=== PATIENT | female | born 1960 | race Caucasian/White ===

== ENCOUNTER 2022-03-30 18:39 | Emergency (ER) | payer SELFPAY ==
[~2022-03-30] VITALS: Ht 147.3 cm; Wt 82.1 kg
--- NOTE | 2022-03-30 18:52 | NUR ---
name called in lobby, no answer at this time
--- NOTE | 2022-03-30 19:13 | NUR ---
lwbs at this time
[2022-03-30 20:44] VITALS: BP 153/88
--- NOTE | 2022-03-30 21:51 | NUR ---
Patient taken to bed 3 via wheel chair.
--- NOTE | 2022-03-30 21:53 | NUR ---
Tomas pardo in [facility] - 03/30/22 at 2200 by [facility] PT W/C TO BED 3.
--- NOTE | 2022-03-30 21:55 | NUR ---
61 YO F BIB SELF WITH C/C OF 07/18 LEFT KNEE PAIN S/P FALL 4WKS. PT STATES ANY TYPE OF MOVEMENT AGGRAVATES THE PAIN. PAIN RADS TO LEFT HIP. PT STATES SHE HAS BEEN TAKING ADVIL FOR PAIN WITH TEMPORARY RELIEF. PT REPORTS SHE FEELS SHE IS UNABLE TO WALK. DENIES HX, AND RX AND ALLERGIES Addendum: 03/30/22 at 2157 by [employer] [employer] PT'S KNEE APPEARS SWOLLEN.
[2022-03-30] MEDS ORDERED: NAPR-54 PO (22:12)
[2022-03-30] MEDS: KETOROLAC 30 MG/ML VIAL IM ONE (22:28)
[2022-03-30 22:49] VITALS: BP 153/88
== END 2022-03-30 22:49 | disposition home or self-care (01) ==
LOC: MED 18:39
DX: S83.92XA Sprain of unspecified site of left knee, initial encounter (principal); Z79.899 Other long term (current) drug therapy; Z85.72 Personal history of non-Hodgkin lymphomas; W19.XXXA Unspecified fall, initial encounter; Y93.89 Activity, other specified; Y92.89 Other specified places as the place of occurrence of the external cause; Y99.8 Other external cause status
CPT/HCPCS: 29505; 73562; 96372; 99283; J1885

== ENCOUNTER 2022-04-16 17:10 | Emergency (ER) | payer SELFPAY ==
[~2022-04-16] VITALS: Ht 147.8 cm; Wt 81.4 kg
[~2022-04-16 17:10] MED LIST: NAPR-54 PO
[2022-04-16 17:19] VITALS: BP 124/61
--- NOTE | 2022-04-16 17:32 | NUR ---
PT AMBULATED TO ER BED 11 WITH A STEADY GAIT.
--- NOTE | 2022-04-16 17:38 | NUR ---
61 Y/O FEMALE C/O LEFT KNEE PAIN 07/18 DESCRIBES BURNING AND THROBBING RADIATES TO BACK OF KNEE S/P FALL X 1 MONTH. PT SEEN HERE SAME S/S 2 WEEKS AGO. PT TOOK IBUPROFEN 1 HOUR AGO WITH NO RELIEF. DENIES FEVER/CHILLS. DENIES N/V/D. PMH: CANCER(LYMPHOMA) NKA
--- NOTE | 2022-04-16 17:41 | NUR ---
VENKAT DUVALTO AT PT BEDSIDE FOR FURTHER EVALUATION.
[2022-04-16] MEDS ORDERED: ONDANSETRON 4 MG ODT PO ONE (17:45)
[2022-04-16] MEDS ORDERED: HYDROcodone/APAP 7.5/325 MG 1 TAB PO ONE (17:45)
[2022-04-16] MEDS ORDERED: ACET-8386 PO ×2 (18:06→18:08)
[2022-04-16] MEDS ORDERED: NAPR-54 PO (18:06)
--- NOTE | 2022-04-16 18:23 | NUR ---
Patient discharged with v/s stable. Written and verbal after care instructions given FOR CHRONIC KNEE PAIN and explained. Patient alert, oriented and verbalized understanding of instructions. Ambulatory with steady gait. All questions addressed prior to discharge. ID band removed. Patient advised to follow up with PMD. Rx of KNEE PAIN given. Patient educated on indication of medication including possible reaction and side effects. Opportunity to ask questions provided and answered.
== END 2022-04-16 18:23 | disposition home or self-care (01) ==
LOC: MED 17:10
DX: M25.562 Pain in left knee (principal); G89.29 Other chronic pain; C85.90 Non-Hodgkin lymphoma, unspecified, unspecified site; Z79.891 Long term (current) use of opiate analgesic; Z79.1 Long term (current) use of non-steroidal anti-inflammatories (NSAID)
CPT/HCPCS: 99283; Q0162

== ENCOUNTER 2023-02-06 12:34 | Emergency (ER) | payer MEDICAID, OTHER ==
[~2023-02-06] VITALS: Ht 157.5 cm; Wt 70.3 kg
[~2023-02-06 12:34] MED LIST changes: +ACET-8905 PO
[2023-02-06 12:50] VITALS: BP 161/79
[2023-02-06] MEDS ORDERED: KETOROLAC 30 MG/ML VIAL IVP ONE ×2 (13:05→15:55)
[2023-02-06] MEDS ORDERED: NACL 0.9% 1,000 ML IV SCH (13:05)
[2023-02-06] MEDS ORDERED: ONDANSETRON 4 MG/2 ML VIAL IVP ONE ×2 (13:05→15:55)
--- NOTE | 2023-02-06 13:07 | NUR ---
PT W/C ASSISTED TO BED 6. ACCOMPANIED BY DAUGHTER
--- NOTE | 2023-02-06 13:17 | NUR ---
pt taken to ct via w/c
--- NOTE | 2023-02-06 13:30 | NUR ---
62/F WALKED IN ACCOMPANIED BY DAUGHTER C/O NAUSEA AND VOMITING ACCOMPANIED BY ABD PAIN ONSET LAST NIGHT. DENIES BLOOD IN VOMIT OR STOOL. DENIES DIARRHEA. AFEBRILE AT TRIAGE. PMH: DM2 NKA
[2023-02-06 13:46] LABS: APPEARANCE,URINE CLEAR (CLEAR); BILIRUBIN,URINE NEGATIVE (NEGATIVE); BLOOD, URINE TRACE-I (NEGATIVE); COLOR,URINE YELLOW (YELLOW); LEUKOCYTE ESTERASE ,URINE 1+ (NEGATIVE); NITRITE, URINE NEGATIVE (NEGATIVE); UGLUCOSE NEGATIVE (NEGATIVE)
[2023-02-06 14:07] LABS: RBC,URINE 0-5 /HPF (0-5)
[2023-02-06 14:19] LABS: BASOPHILS # (AUTO) 0.1 K/uL (0.00-0.22); BASOPHILS % (AUTO) 0.4 % (0.0-2.0); EOSINOPHILS # (AUTO) 0.1 K/uL (0-0.4); EOSINOPHILS % (AUTO) 0.7 % (0.0-4.0); HEMATOCRIT 38.8 % (36-48); HEMOGLOBIN 13.1 g/dL (12.0-16.0); LYMPHOCYTES # (AUTO) 0.7 K/uL (2.5-16.5); LYMPHOCYTES % (AUTO) 5.7 % (20.5-51.1); MEAN CORPUSCULAR HEMOGLOBIN 29 pg (27-31); MEAN CORPUSCULAR HGB CONC 34 g/dL (33-37); MONOCYTES # (AUTO) 0.3 K/uL (0.8-1.0); MONOCYTES % (AUTO) 2.6 % (1.7-9.3); NEUTROPHILS # (AUTO) 11.6 K/uL (1.8-7.7); NEUTROPHILS % (AUTO) 90.6 % (42.2-75.2); PLATELET COUNT (AUTO) 252 K/uL (140-450); RED BLOOD CELL COUNT(AUTO) 4.56 MIL/uL (4.20-5.40); RED CELL DISTRIBUTION WIDTH 13.8 % (11.6-13.7); WHITE BLOOD COUNT (AUTO) 12.8 K/uL (4.8-10.8)
--- NOTE | 2023-02-06 14:47 | NUR ---
UNSUCCESSFUL IV INSERTION. DR TAYLOR AWARE.
[2023-02-06 14:49] LABS: ALBUMIN 3.7 g/dL (3.4-5.0); ANION GAP 16.2 (8-16); CARBON DIOXIDE 23.3 mmol/L (21-32); CREATININE 0.7 mg/dL (0.6-1.3); POTASSIUM 3.5 mmol/L (3.5-5.1); TOTAL BILIRUBIN 0.8 mg/dL (0.0-1.0)
[2023-02-06 15:28] VITALS: BP 124/79
--- NOTE | 2023-02-06 15:29 | NUR ---
MD TAYLOR AT BEDSIDE FOR EVALUATION
[2023-02-06] MEDS ORDERED: MECLIZINE 25 MG TAB PO ONE (15:40)
[2023-02-06] MEDS ORDERED: ONDANSETRON 4 MG/2 ML VIAL ONE (15:53)
[2023-02-06] MEDS ORDERED: NACL 0.9% 1,000 ML IV ONE (15:55)
[2023-02-06] MEDS ORDERED: KETOROLAC 30 MG/ML VIAL ONE (15:57)
[2023-02-06] MEDS ORDERED: CIPR500T4 PO (16:52)
[2023-02-06] MEDS ORDERED: ONDA8TAB87 PO (16:53)
[2023-02-06] MEDS ORDERED: MECL-303 PO (16:53)
[2023-02-06] MEDS ORDERED: IBUP-2213 PO (16:53)
--- NOTE | 2023-02-06 17:00 | NUR ---
Patient discharged with v/s stable. Written and verbal after care instructions FOR N/V, UTI AND VERTIGO given and explained. Patient alert, oriented and verbalized understanding of instructions. Ambulatory with steady gait. All questions addressed prior to discharge. ID band removed. Patient advised to follow up with PMD. Rx of CIPRO, IBUPROFEN,ANTIVERT AND ZOFRAN given. Opportunity to ask questions provided and answered.
--- NOTE | 2023-02-06 17:11 | NUR ---
The patient's care was reviewed and supervised by France Molina RN.
== END 2023-02-06 17:00 | disposition home or self-care (01) ==
LOC: MED 12:34
DX: R42 Dizziness and giddiness (principal); R11.2 Nausea with vomiting, unspecified; N39.0 Urinary tract infection, site not specified; E11.9 Type 2 diabetes mellitus without complications; Z79.899 Other long term (current) drug therapy; Z85.72 Personal history of non-Hodgkin lymphomas; Z98.890 Other specified postprocedural states
CPT/HCPCS: 36415; 74176; 80053; 81001; 83690; 85025; 87086; 96374; 96375; 99285; J1885; J2405; J7030; J8597; 99284

== ENCOUNTER 2023-09-09 19:13 | Emergency (ER) | payer OTHER ==
[~2023-09-09] VITALS: Ht 152.4 cm; Wt 68.9 kg
[~2023-09-09 19:13] MED LIST changes: +CIPR500T4 PO; +IBUP-2213 PO; +MECL-303 PO; +ONDA8TAB87 PO
[2023-09-09 19:37] VITALS: BP 131/75; PULSE 78; RESP 20; TEMP 97.7; O2SAT 97
[2023-09-09 20:40] VITALS: O2SAT 98
== END 2023-09-09 23:45 | disposition home or self-care (01) ==
LOC: MED 19:13
DX: N81.4 Uterovaginal prolapse, unspecified (principal); Z79.899 Other long term (current) drug therapy
CPT/HCPCS: 81002; 99284